=== PATIENT | female | born 1955 | race Caucasian/White ===

== ENCOUNTER → 2025-07-16 14:31 | Outpatient (REF) | payer BC, MEDICARE, SELFPAY | LOC: HWRAD 14:31 | PROVIDERS: ATTENDING PHYSICIAN Internal Medicine | DX: R10.13 Epigastric pain (principal) | CPT/HCPCS: 76700 ==

== ENCOUNTER → 2025-07-23 16:03 | Outpatient (REF) | payer MEDICARE, BC, SELFPAY | LOC: RAD 16:03 | DX: K83.8 Other specified diseases of biliary tract (principal) | CPT/HCPCS: 74178; Q9967 ==